=== PATIENT | male | born 1985 | race Hispanic/Latino ===

== ENCOUNTER 2019-02-27 14:27 | Emergency (ER) | payer SELFPAY ==
[~2019-02-27] VITALS: Ht 170.2 cm; Wt 86.0 kg
[2019-02-27] MEDS ORDERED: OFLOXACIN0.3 % OD (15:20)
[2019-02-27 15:25] VITALS: BP 139/77
== END 2019-02-27 15:25 | disposition home or self-care (01) | DRG 125 ==
LOC: ED 14:27
DX: S05.01XA Injury of conjunctiva and corneal abrasion without foreign body, right eye, initial encounter (principal); W20.8XXA Other cause of strike by thrown, projected or falling object, initial encounter; Y93.H3 Activity, building and construction; Y92.009 Unspecified place in unspecified non-institutional (private) residence as the place of occurrence of the external cause